=== PATIENT | female | born 1965 | race Caucasian/White ===

== ENCOUNTER 2020-05-05 23:30 | Inpatient (IN) | payer MEDICARE, OTHER ==
[~2020-05-05] VITALS: Ht 165.1 cm; Wt 63.5 kg
[2020-05-06] MEDS ORDERED: MAG HYDROX/AL HYDROX/SIMETH 30 ML UDC PO PRN (00:30)
[2020-05-06] MEDS ORDERED: BLOOD SUGAR DIAGNOSTIC 1 EACH STRIP IN ONE (00:30)
[2020-05-06] MEDS ORDERED: MAGNESIUM HYDROXIDE 30 ML UDC PO PRN (00:30)
[2020-05-06 00:52] VITALS: BP 148/76
[2020-05-06] MEDS ORDERED: ASPI-1169 PO (01:03)
[2020-05-06] MEDS ORDERED: FAMO-131 PO (01:03)
[2020-05-06] MEDS ORDERED: SENN-18 PO (01:03)
[2020-05-06] MEDS ORDERED: ENOX40DI SQ (01:03)
[2020-05-06] MEDS ORDERED: LEVE250T2 PO (01:03)
--- NOTE | 2020-05-06 01:23 | NUR ---
GPS RN ADMITTING NOTE PT ADMITTED TO THE UNIT 05/05/2020 @ 0050, PT ARRIVED VIA AMBULANCE/GURNEY TRANSPORTED FROM [facility]. PT IS A 54 Y/O FEMALE CURRENTLY ON A 5150 FOR DTS PER REPORT PT TRIED TO OVERDOSE ON PRESCRIPTION MEDICATION. PT HAS HISTORY OF HYPERTENSION, HIV + AND SEIZURES. PT HAS NO HISTORY OF ALCOHOL OR DRUG ABUSE OR PREVIOUS SI/HI. PT IS A/O X 3, FLAT AFFECT, DEPRESSED, ANXIOUS, ISOLATIVE MOOD. PT IS CALM, COOPERATIVE, COMPLIANT WITH STAFF BUT REFUSED TO SIGN PAPERWORK. UPON ADMISSION, SKIN CHECK WAS DONE, PICTURES WERE TAKEN AND PLACED IN CHART FOR SLIGHT ABRASIONS AND WOUND CONSULT ORDERED. PT VITAL SIGNS ARE STABLE, B/P: 148/76, T:99.6, R.R.: 18, HR: 73, O2: 99 RA. WHEN ASKED PT UNDERSTANDING FOR HOSPITALIZATION THE PT STATED "I TRIED TO TAKE MY LIFE AWAY, I AM GOING THROUGH A DIVORCE AND I DO NOT WANT TO BE ". WHEN ASKED IF PT HAS THOUGHTS OF SELF HARM OR HARMING OTHER PT DENIES, PT ALSO DENIES AVH. NO CONTRABANDS WERE WITH PT, PT ORIENTED TO UNIT, PT ADVISE OF HOLD AND PTS RIGHTS BOOKLET GIVEN. DR. ARANDA AND MEDICAL CARE OF DR. BLUM WILL BE APART OF PTS PLAN OF CARE. NO FAMILY TO NOTIFY. ALL PTS QUESTIONS AND CONCERNED WERE ANSWERED. ENVIRONMENTAL CHECK DONE PTS BED IS IN LOCKED AND LOWEST POSITION, BED ALARM IS ON, PT IS NOTIFIED ON HOW TO USE CALL LIGHT, WILL CONTINUE TO MONITOR Q15 MIN FOR SAFETY AND BEHAVIOR. Addendum: 05/06/20 at 0330 by CLYDE CEDENO RN PER RECORD PT IS A RECOVERING ALCOHOLIC, WHEN ASKED PT ABOUT HISTORY OF ALCOHOL AND DRUG ABUSE PT DENIES ANY HISTORY OF ALCOHOL AND DRUG ABUSE.
[2020-05-06] MEDS: ACETAMINOPHEN 325 MG TABLET PO PRN ×2 (03:15→17:36)
--- NOTE | 2020-05-06 06:49 | NUR ---
GPS RN NOTE: FAMILY NOTIFICATION RECEIVED A CALL FROM DAUGHTERMELQUIADES AT @0630, NOTIFIED PT ADMISSION AND PT MADE AWARE STATED "I WILL CALL HER BACK LATER".
[2020-05-06 08:00] VITALS: BP 113/75
[2020-05-06] MEDS ORDERED: SENNOSIDES 8.6 MG TABLET PO PRN (08:30)
[2020-05-06] MEDS: ASPIRIN 81 MG TAB.CHEW PO SCH (08:42)
[2020-05-06] MEDS: FAMOTIDINE (20 MG) 20 MG TABLET PO SCH (08:42)
[2020-05-06] MEDS: LEVETIRACETAM (250 MG) 250 MG TABLET PO SCH ×2 (08:43→21:59)
[2020-05-06] MEDS ORDERED: ENOXAPARIN SODIUM 40 MG/0.4 ML DISP.SYRIN SQ SCH (09:00)
--- NOTE | 2020-05-06 11:01 | NUR ---
Family Contact: JHONNY spoke with patient's daughter, Jemima Hair ([phone]) regarding treatment and initial discharge plan. Jemima stated that patient will return home upon discharge. Jemima provided collateral information regarding the patient, and stated that this is the patient's first suicide attempt, however patient suffers from depression for many years. Jemima stated that the patient receives primary physician and psychiatry services from the [place] in [address] [address] ([phone]).
--- NOTE | 2020-05-06 11:01 | NUR ---
JHONNY Initial Discharge Plan: Patient currently resides at home [address] , [place] [address] lives with daughter, Jemima Hair ([phone]). JHONNY spoke with Jemima who confirmed that patient will return home upon discharge. Patient would like to return back home upon discharge. JHONNY will continue to work with patient, family, and MD to ensure a safe and proper discharge plan.
--- NOTE | 2020-05-06 11:45 | NUR ---
Brief Substance Abuse Intervention: Patient was provided with a brief substance abuse intervention and referred to the following substance abuse programs: [facility] Substance Abuse Self-helpline ([phone]); [facility] [address] [place] [address] ([phone]); [facility] [address] [facility] [address] ([phone]); [facility] ([phone]); [facility] ([phone]); [facility] ([phone]); [facility] ([phone]).
--- NOTE | 2020-05-06 15:48 | NUR ---
Group Note: SW encouraged pt to attend group therapy on 05/06/20 on the topic of discharge planning. Pt appeared to be asleep and stated that he did not want to participate.
[2020-05-06 16:00] VITALS: BP 129/72
[2020-05-06] MEDS: clonazePAM 0.5 MG TABLET PO PRN (17:51)
--- NOTE | 2020-05-06 17:52 | NUR ---
RN NOTE: PAIN/ANXIETY PT C/O 12/10 HEADACHE. MEDICATED WITH TYLENOL 650MG PO PRN. PT ALSO TEARFUL AND ANXIOUS. MEDICATED WITH KLONOPIN 0.5 MG PO PRN
--- NOTE | 2020-05-06 19:00 | NUR ---
GPS RN NOTES OPENING: RECEIVED PT IN BED AWAKE RESTING COMFORTABLY. PT IS A/O X3-4, ISOLATIVE, QUIET, RESERVE, GUARDED, NO DIRECT EYE CONTACT W/ STAFF, SEEMS DEPRESSED, AND FLAT AFFECT. NO RESP DISTRESS NOTED. BREATHING EVEN AND UNLABORED. NO PAIN AT THIS TIME. ENCOURAGE PT TO EXPRESS THOUGHTS AND FEELINGS. CALL ELIAS WITHIN REACH. SAFETY CHECK Q15 MIN. NO SI OR HI AT THIS TIME. CONTINUE TO MONITOR.
--- NOTE | 2020-05-06 19:55 | NUR ---
GPS RN NOTES: C/O OF CHEST PAIN RECEIVED CALL FROM PTS DAUGHTER MELQUIADES STATING THAT HER MOM IS CURRENTLY HAVING CHEST PAIN. WENT TO PTS ROOM AND FOUND PT LAYING IN BED AWAKE AND TALKING TO HER DAUGHTER ON THE PHONE. ASSESSED PT AND CONFIRMED W/ STAFF SHE IS HAVING CHEST PAIN. PT RATED PAIN TO BE 9/10 LOCATED TOWARDS HER MID CHEST. PT STATED PAIN DOES NOT RADIATE ANYWHERE ELSE IN HER BODY AND THAT THE PAIN INCREASES WHEN SHE IS MOVING OUT OF HER BED OR GETTING UP. VITALS TAKEN WNL. BP 110/ 78, 99% OXYGEN SAT ON ROOM AIR, 18 RESP, AND 77 HEART RATE. NO RESP DISTRESS. NO SOB. BREATHING EVEN AND UNLABORED. ASKED PT IF SHE HAS HAD THIS PAIN BEFORE AND PT STATED SHE HAS NOT. PT SPOKE ON THE PHONE W/ HER DAUGHTER AND CONFIRMED W/ DAUGHTER SHE HAS HAD THIS PAIN BEFORE IN THE PAST. SPOKE W/ THE DAUGHTER ON THE PHONE AND STATED HER MOTHER HAD THE CHEST PAIN ABOUT 2 WEEKS AGO AND COMES "OFF AND ON AT TIMES". PAGED THE VICE PRESIDENT INTEGRATED CLOCKMAKER APPRENTICE CARROL BURK REGARDING THE PATIENTS CHANGE OF CONDITION. WILL F/U FOR ANY NEW ORDERS. ELEVATED THE HEAD OF THE BED. SAFETY CHECK Q15 MIN. BY BED SIDE OF PT. CONTINUE TO MONITOR.
[2020-05-06 19:58] VITALS: BP 110/78
[2020-05-06 20:05] VITALS: BP 108/69
--- NOTE | 2020-05-06 20:41 | NUR ---
GPS RN NOTES: UROLOGY PHYSICIAN ASSISTANT CALL BACK THE LINE APPLIANCE ASSEMBLER UROLOGY PHYSICIAN ASSISTANT CARROL BURK CALLED BACK AND NOTIFIED REGARDING PT CURRENT CONDITION WITH NEW ORDERS OF HYDROCODONE 5-325MG PO PRN Q6RS FOR SEVERE PAIN AND MOTRIN 400 MG PO PRN Q6RS FOR MILD PAIN. ORDERS NOTED AND CARRIED OUT. ADMINISTERED NORCO 5-325MG PO PRN ORDERED FOR CHEST PAIN. PT AGREED AND TOLERATED MEDICATION WELL. CONTINUE TO MONITOR.
[2020-05-06] MEDS: HYDROCODONE/APAP 5/325MG 1 EACH TABLET PO PRN (20:51)
[2020-05-06] MEDS ORDERED: IBUPROFEN 400 MG TABLET PO PRN (21:00)
--- NOTE | 2020-05-06 21:00 | NUR ---
GPS RN NOTES: ELECTRICIAN FRONT ASSESSED PT ELECTRICIAN FRONT CARROL BURK CAME TO THE UNIT AND ASSESSED PT. ELECTRICIAN FRONT AT BEDSIDE WITH NO OF CBC, CMP, TROPONIN LEVEL, AND EKG STAT. ORDERERS NOTED AND CARRIED OUT. CONTINUE TO MONITOR
[2020-05-06 21:40] VITALS: BP 124/70
--- NOTE | 2020-05-06 21:40 | NUR ---
GPS RN NOTES: UPON DOING ROUNDS, PT AWAKE IN BED. PT STATED, "MY PAIN IS GETTING A LITTLE BETTER. " RECHECKED VITALS WNL. BP 124/ 70, PULSE 76, OXYGEN LEVEL 97%, RESP 18. NO RESP DISTRESS NOTED. BREATHING EVEN AND UNLABORED. CONTINUE TO MONITOR.
[2020-05-06 21:48] LABS: BASOPHILS % (AUTO) 0.6 % (0.0-2.0); EOSINOPHILS % (AUTO) 2.9 % (0.0-6.0); HEMATOCRIT 39 % (33-45); HEMOGLOBIN 12.7 g/dL (11.5-14.8); LYMPHOCYTES # (AUTO) 1.7 /CMM (0.8-4.8); LYMPHOCYTES % (AUTO) 27.5 % (20.0-44.0); MEAN CORPUSCULAR HGB CONC 33 g/dl (31.0-36.0); MEAN CORPUSCULAR VOLUME 97 fL (82-100); MONOCYTES # (AUTO) 0.7 /CMM (0.1-1.30); MONOCYTES % (AUTO) 11.8 % (2.0-12.0); NEUTROPHILS # (AUTO) 3.5 /CMM (1.8-8.9); NEUTROPHILS % (AUTO) 57.2 % (43.0-81.0); PLATELET COUNT (AUTO) 288 /CMM (150-450); RED BLOOD CELL COUNT(AUTO) 4.01 MIL/uL (4.0-5.2); WHITE BLOOD COUNT (AUTO) 6.1 K/uL (4.3-11.0)
--- NOTE | 2020-05-06 22:09 | NUR ---
GPS RN NOTES: LAB RESULTS SHOWN TROPONIN LEVEL <0.017, NA LEVEL 134, POTASSIUM 4.1, WBC 6.1, RBC 4.01, HGB 12.7, HCT 39. RELAYED PT SODIUM LEVEL 134 TO RESEARCH CHEF WM. NO NEW ORDERS AT THIS TIME. NO RESP DISTRESS. BREATHING EVEN AND UNLABORED. PT RESTING IN BED AWAKE. OFFERED SNACKS REQUESTED BY PT. TOLERATED WELL. CONTINUE TO MONITOR.
[2020-05-06] MEDS: ESCITALOPRAM OXALATE (10 MG) 10 MG TABLET PO SCH (22:37)
[2020-05-06 22:56] LABS: ALANINE AMINOTRANSFERASE 38 U/L (12-78); ALBUMIN 2.6 g/dL (3.4-5.0); ALKALINE PHOSPHATASE 74 U/L (46-116); ASPARTATE AMINOTRANSFERASE 22 U/L (15-37); BILIRUBIN,TOTAL 0.4 mg/dL (0.2-1.0); CALCIUM, SERUM 8.7 mg/dL (8.5-10.1); CARBON DIOXIDE 30 mmol/L (21-32); CHLORIDE 101 mmol/L (98-107); CREATININE 0.7 mg/dL (0.6-1.3); GLUCOSE 117 mg/dL (74-106); POTASSIUM 4.1 mmol/L (3.5-5.1); SODIUM SERUM 134 mmol/L (136-145); UREA NITROGEN, BLOOD 14 mg/dL (7-18)
--- NOTE | 2020-05-06 23:00 | NUR ---
GPS RN NOTES: DAUGHTER MELQUIADES CALLED TO CHECK ON PT. MADE AWARE OF PTS CURRENT STATE. PT IS CURRENTLY SLEEPING IN BED RESTING COMFORTABLE W/ EYES CLOSED. BREATHING EVEN AND UNLABORED. NO SOB. AT THIS TIME. NO RESP DISTRESS. CALL ELIAS WITHIN REACH. SAFETY CHECK Q15 MIN. KEPT CLEAN AND DRY. CONTINUE TO MONITOR.
[2020-05-07] VITALS (7 sets, daily range): BP systolic 109–126; BP diastolic 69–93
--- NOTE | 2020-05-07 00:09 | NUR ---
GPS RYAN NOTES: LABORATORY CAME AND NAT BLOOD. ANIMAL CAREGIVER CAME. EKG RESULTS SHOW SINUS RHYTHM NONSPECIFIC T ABNORMALITIES RATE IS 76. ERICA BURK AWARE ABOUT EKG RESULTS. CONTINUE TO MONITOR. Addendum: 05/07/20 at 0016 by ABDIRIZAK MARVIN RN EKG RESULTS RELAYED TO WM AT 05/06/20 @9938
[2020-05-07] MEDS: TEMAZEPAM 15 MG CAPSULE PO PRN (01:23)
--- NOTE | 2020-05-07 01:25 | NUR ---
GPS RN NOTES: INSOMNIA PT C/O UNABLE TO SLEEP. PT REQUESTED SLEEPING MEDICATION. VITALS CHECKED WNL. B/P 115/76, HR 80, O2 98, RESP 20. NO SOB. BREATHING EVEN AND UNLABORED. ASKED PT IF SHE IS CURRENTLY IN ANY PAIN PT SHOOK HER HEAD. OFFERED RESTORIL 15MG PO PRN ORDERED. PT AGREED AND TOLERATED MEDICATION WELL. CONTINUE TO MONITOR.
[2020-05-07 08:02] LABS: CHOLESTEROL 204 mg/dL (<200); HDL CHOLESTEROL 45 mg/dL (40-60); LDL 133 mg/dL (0-99); TRIGLYCERIDES 96 mg/dL (30-150)
[2020-05-07 08:17] LABS: ALBUMIN 2.6 g/dL (3.4-5.0); BILIRUBIN,TOTAL 0.4 mg/dL (0.2-1.0); CALCIUM, SERUM 8.6 mg/dL (8.5-10.1); CREATININE 0.6 mg/dL (0.6-1.3); POTASSIUM 4.2 mmol/L (3.5-5.1)
[2020-05-07] MEDS: ESCITALOPRAM OXALATE (10 MG) 10 MG TABLET PO SCH (09:13)
[2020-05-07] MEDS: ASPIRIN 81 MG TAB.CHEW PO SCH (09:13)
[2020-05-07] MEDS: LEVETIRACETAM (250 MG) 250 MG TABLET PO SCH ×2 (09:13→21:56)
[2020-05-07] MEDS: FAMOTIDINE (20 MG) 20 MG TABLET PO SCH (09:15)
--- NOTE | 2020-05-07 11:23 | NUR ---
Group Note: SW encouraged pt to participate in group on the topic of dealing with anxiety. Patient stated that she is feeling a little anxiety. Patient presents increasingly depressed and withdrawn. SW encouraged patient to share her feelings and emotions, however patient is guarded and does not want to over share.
[2020-05-07] MEDS: clonazePAM 0.5 MG TABLET PO PRN (19:41)
--- NOTE | 2020-05-07 19:43 | NUR ---
GPS RN NOTES: ANXIOUS PT C/O OF FEELING ANXIOUS. VITALS STABLE WNL. NO SOB. NO RESP DISTRESS. BREATHING EVEN AND UNLABORED. NO PAIN NOTED PT REQUESTED "ANXIETY MEDICATION". OFFERED KLONOPIN PRN PO ORDERED. PT AGREED AND TOLERATED MEDICATION WELL. CONTINUE TO MONITOR
[2020-05-07] MEDS: HYDROCODONE/APAP 5/325MG 1 EACH TABLET PO PRN (21:12)
--- NOTE | 2020-05-07 21:13 | NUR ---
GPS RN NOTES: PAIN PT C/O OF 04/11 MID CHEST PAIN. VITALS CHECK WNL. NO SOB. NO RESP DISTRESS. BREATHING EVEN AND UNLABORED. OFFERED NORCO PRN PO ORDERED. PT AGREED AND TOLERATED MEDICATION WELL. CONTINUE TO MONITOR.
[2020-05-07] MEDS: QUETIAPINE FUMARATE 25 MG TABLET PO SCH (22:56)
[2020-05-08 08:00] VITALS: BP 121/59
[2020-05-08] MEDS: ESCITALOPRAM OXALATE (10 MG) 10 MG TABLET PO SCH (09:00)
[2020-05-08] MEDS: ASPIRIN 81 MG TAB.CHEW PO SCH (09:00)
[2020-05-08] MEDS: FAMOTIDINE (20 MG) 20 MG TABLET PO SCH (09:00)
[2020-05-08] MEDS: LEVETIRACETAM (250 MG) 250 MG TABLET PO SCH ×2 (09:00→21:09)
[2020-05-08] MEDS: clonazePAM 0.5 MG TABLET PO PRN (12:47)
--- NOTE | 2020-05-08 12:47 | NUR ---
rn notes administered Klonopin 0.5 mg po prn for anxiety per patient request, also complication of pain upper chest. v/s taken bp145/82, p-93, safety precaution maintained all the time.
[2020-05-08 12:56] VITALS: BP 114/75
[2020-05-08] MEDS: ACETAMINOPHEN 325 MG TABLET PO PRN (13:00)
--- NOTE | 2020-05-08 13:00 | NUR ---
RN NOTES ADMINISTERED TYLENOL 650 MG PO PRN FOR UPPER CHEST PAIN 12/10 PER PATIENT REQUEST, CONTINUED MONITORING.
--- NOTE | 2020-05-08 13:18 | NUR ---
RN-CO: PATIENT WAS SEEN BY DR ARANDA VIA TELEMEDICINE.
--- NOTE | 2020-05-08 15:12 | NUR ---
FAMILY CONTACT: SW spoke with patient's daughter, Jemima Hair ([phone]) regarding treatment and initial discharge plan. Daughter informed SW that pt has been complaining about chest pain, daughter stated that before pt was hospitalized daughter performed CPR and believes that pt may have a fractured bone. Daughter is requesting pt have a chest X-ray done. SW stated that she will inform RN. Daughter also stated that she will try to contact the [facility] to schedule follow up appointments for pt.
[2020-05-08 16:00] VITALS: BP 126/92
[2020-05-08 19:50] LABS: APPEARANCE,URINE CLEAR (CLEAR); BILIRUBIN,URINE NEGATIVE (NEGATIVE); BLOOD, URINE LARGE Ery/uL (NEGATIVE); COLOR,URINE YELLOW (YELLOW); KETONES,URINE TRACE (NEGATIVE); LEUKOCYTE ESTERASE ,URINE LARGE (NEGATIVE); NITRITE, URINE NEGATIVE (NEGATIVE); PROTEIN,URINE NEGATIVE (NEGATIVE); UGLUCOSE NEGATIVE (NEGATIVE); UROBILINOGEN,URINE 0.2 EU/dL (0.2)
[2020-05-08 20:06] VITALS: BP 109/52
[2020-05-08 20:29] LABS: BACTERIA,URINE 3+ /HPF (None Seen); RBC,URINE 21-50 /HPF (0-2); SQUAMOUS EPITHELIAL CELL,UR 0-2 /HPF (None Seen); WBC,URINE 81-100 /HPF (0-3)
[2020-05-08] MEDS: HYDROCODONE/APAP 5/325MG 1 EACH TABLET PO PRN (21:09)
--- NOTE | 2020-05-08 21:17 | NUR ---
GPS RN NOTE: PAIN PT STATED SHE WAS HAVING "9/10 CHEST AND BODY PAIN, IT IS GOING THROUGHOUT MY BODY". CHECKED PT VITAL SIGNS, BP: 126/82, HR: 73, RR: 18, O2: 98 RA. PT STATED "CAN I TAKE MY NORCO RIGHT NOW", ADMINISTERED NORCO PRN @ 2102. WILL REASSESS AND CONTINUE TO MONITOR Q15MIN FOR SAFETY AND BEHAVIOR.
--- NOTE | 2020-05-08 21:42 | NUR ---
GPS RN NOTE, PATIENT UA RESULTS ARE THE FOLLOWING URINE WBC 81 -100 AND URINE BACTERIA IS 3 + HIGH. PATIENT URINE CULTURE IS PENDING. PATIENT IS AFEBRILE, HAS NO COMPLAINT OF DYSURIA, OR DIFFICULTY URINATING AT THIS TIME. PAGED [facility] AND INFORMED CARROL BURK DNP OF MY FINDINGS. CARROL BURK DNP ORDERED LEVOFLOXACIN 250MG PO DAILY BRIANNA X 5 DAYS FOR A URINARY TRACT INFECTION. ALL ORDERS NOTED AND CARRIED OUT. WILL CONTINUE TO MONITOR THIS PATIENT WITH THE HELP OF STAFF
[2020-05-08] MEDS: QUETIAPINE FUMARATE 25 MG TABLET PO SCH (21:59)
--- NOTE | 2020-05-08 22:30 | NUR ---
GPS RN NOTE, PATIENT 5150 HOLD IS GOING TO ON 05/08/20 @ [address]. PAG[address] ARANDA AND INFORMED HIM OF MY FINDING. DR ARANDA ORDERED TO HAVE THIS PATIENT SIGN VOLUNTARY. ALL ORDERS NOTED AND CARRIED OUT. WILL CONTINUE TO MONITOR THIS PATIENT WITH THE HELP OF STAFF.
[2020-05-08] MEDS: TEMAZEPAM 15 MG CAPSULE PO PRN (22:48)
--- NOTE | 2020-05-08 22:52 | NUR ---
GPS RN NOTE: INSOMNIA PT STATED "CAN I HAVE A RESTORIL RIGHT NOW I CAN'T SLEEP". WENT AHEAD CHECK PATIENTS VITALS, VITAL SIGNS STABLE BP: 117/77, HR:75, RR: 17, 02: 99 RA. ADMINISTERED RESTORIL PRN @2240. ENVIORNMENTAL CHECK DONE, PT BED IS IN LOCKED AND LOWEST POSITION. BED ALARM IS ON. WILL REASSESS AND CONTINUE TO MONITOR Q15 MIN FOR SAFETY AND BEHAVIOR.
[2020-05-09] MEDS: ASPIRIN 81 MG TAB.CHEW PO SCH (08:21)
[2020-05-09] MEDS: FAMOTIDINE (20 MG) 20 MG TABLET PO SCH (08:21)
[2020-05-09] MEDS: LEVETIRACETAM (250 MG) 250 MG TABLET PO SCH ×2 (08:21→21:49)
[2020-05-09] MEDS: ESCITALOPRAM OXALATE (10 MG) 10 MG TABLET PO SCH (08:21)
[2020-05-09] MEDS: LEVOFLOXACIN (250MG) 250 MG TABLET PO SCH (08:23)
[2020-05-09 08:30] VITALS: BP 131/80
[2020-05-09 16:00] VITALS: BP 140/89
[2020-05-09 19:35] VITALS: BP 121/73
[2020-05-09] MEDS: HYDROCODONE/APAP 5/325MG 1 EACH TABLET PO PRN (20:05)
--- NOTE | 2020-05-09 20:05 | NUR ---
GPS RN NOTE: PAIN PT. C/O OF 06/12 LOWER BACK PAIN. ADMINISTERED NORCO PO PRN ORDERED. WILL CONTINUE TO MONITOR FOR SAFETY AND BEHAVIOR.
[2020-05-09] MEDS: QUETIAPINE FUMARATE 25 MG TABLET PO SCH (21:48)
[2020-05-09] MEDS: TEMAZEPAM 15 MG CAPSULE PO PRN (22:41)
--- NOTE | 2020-05-09 22:41 | NUR ---
GPS RN NOTE: INSOMNIA PT. C/O OF UNABLE TO SLEEP. ADMINISTERED RESTORIL PO PRN ORDERED. WILL CONTINUE TO MONITOR FOR SAFETY AND BEHAVIOR.
[2020-05-10 08:00] VITALS: BP 125/66
[2020-05-10] MEDS: ESCITALOPRAM OXALATE (10 MG) 10 MG TABLET PO SCH ×2 (08:35→12:13)
[2020-05-10] MEDS: ASPIRIN 81 MG TAB.CHEW PO SCH (08:35)
[2020-05-10] MEDS: FAMOTIDINE (20 MG) 20 MG TABLET PO SCH (08:35)
[2020-05-10] MEDS: LEVOFLOXACIN (250MG) 250 MG TABLET PO SCH (08:35)
[2020-05-10] MEDS: LEVETIRACETAM (250 MG) 250 MG TABLET PO SCH ×2 (08:35→21:25)
[2020-05-10 16:00] VITALS: BP 104/62
[2020-05-10 20:20] VITALS: BP 100/64
[2020-05-10] MEDS: HYDROCODONE/APAP 5/325MG 1 EACH TABLET PO PRN (20:50)
--- NOTE | 2020-05-10 20:50 | NUR ---
GPS RN NOTE: PAIN PT. C/O OF 06/12 LOWER BACK PAIN. ADMINISTERED NORCO PO PRN ORDERED. WILL CONTINUE TO MONITOR FOR SAFETY AND BEHAVIOR.
[2020-05-10] MEDS: QUETIAPINE FUMARATE 25 MG TABLET PO SCH (21:25)
[2020-05-10] MEDS: TEMAZEPAM 15 MG CAPSULE PO PRN (22:49)
--- NOTE | 2020-05-10 22:49 | NUR ---
GPS RN NOTE: INSOMNIA PT. C/O OF UNABLE TO SLEEP. ADMINISTERED RESTORIL PO PRN ORDERED. WILL CONTINUE TO MONITOR FOR SAFETY AND BEHAVIOR.
[2020-05-11 08:00] VITALS: BP 107/63
[2020-05-11] MEDS: ESCITALOPRAM OXALATE (10 MG) 10 MG TABLET PO SCH ×2 (08:23→12:20)
[2020-05-11] MEDS: LEVOFLOXACIN (250MG) 250 MG TABLET PO SCH (08:24)
[2020-05-11] MEDS: FAMOTIDINE (20 MG) 20 MG TABLET PO SCH (08:24)
[2020-05-11] MEDS: LEVETIRACETAM (250 MG) 250 MG TABLET PO SCH ×2 (08:24→21:25)
[2020-05-11] MEDS: ASPIRIN 81 MG TAB.CHEW PO SCH (08:24)
--- NOTE | 2020-05-11 09:00 | NUR ---
RN NOTE- PT IN BED, ALERT ORIENTED PERSON PLACE TIME PURPOSE PO INTAKE GOOD MED COMPLIANT DENIES SI HI AH VH WITHDRAWN FLAT AFFECT GUARDED
[2020-05-11 15:49] VITALS: BP 130/93
[2020-05-11 20:00] VITALS: BP 100/57
[2020-05-11] MEDS: HYDROCODONE/APAP 5/325MG 1 EACH TABLET PO PRN (20:39)
--- NOTE | 2020-05-11 20:55 | NUR ---
GPS RN NOTE: PAIN PT STATED A PAIN 06/12 STATED "CAN I HAVE MY NORCO " PTS VITALS 135/76, HR: 91, RR: 20, O2: 97 RA, ADMINISTERED NORCO @ 2038, WILL REASSESS AND CONTINUE TO MONITOR Q15 MIN FOR SAFETY AND BEHAVIOR
[2020-05-11] MEDS: QUETIAPINE FUMARATE 25 MG TABLET PO SCH (21:25)
[2020-05-11] MEDS: TEMAZEPAM 15 MG CAPSULE PO PRN (23:48)
--- NOTE | 2020-05-11 23:55 | NUR ---
GPS RN NOTE: INSOMNIA PT STATED "I CAN'T FALL ASLEEP, CAN I PLEASE HAVE MY RESTORIL". ADMINISTERED PRN RESTORIL AT 2358, WILL REASSESS AND CONTINUE TO MONITOR Q15 MIN FOR SAFETY AND BEHAVIOR
[2020-05-12 08:00] VITALS: BP 95/62
[2020-05-12] MEDS: ASPIRIN 81 MG TAB.CHEW PO SCH (08:39)
[2020-05-12] MEDS: FAMOTIDINE (20 MG) 20 MG TABLET PO SCH (08:39)
[2020-05-12] MEDS: LEVETIRACETAM (250 MG) 250 MG TABLET PO SCH ×2 (08:39→20:04)
[2020-05-12] MEDS: LEVOFLOXACIN (250MG) 250 MG TABLET PO SCH (08:39)
[2020-05-12] MEDS: ESCITALOPRAM OXALATE (10 MG) 10 MG TABLET PO SCH ×2 (08:39→12:13)
--- NOTE | 2020-05-12 09:00 | NUR ---
RN NOTE- PT OOB INTERACTIVE PO INTAKE GOOD DENIES SI HI AH VH. MED COMPLIANT
--- NOTE | 2020-05-12 10:42 | NUR ---
WOUND CARE CONSULT: PT PRESENTS WITH REDNESS/RASH TO BREASTFOLDS, PRESENT ON ADMISSION. RECOMMENDATIONS MADE FOR SKIN CARE AND PROTECTION. DISCUSSED WITH NURSING STAFF. PT IS AMBULATORY AND CONTINENT. Addendum: 05/12/20 at 1043 by DAVID THOMPSON WNDNU Amended: Links added.
[2020-05-12 16:00] VITALS: BP 113/74
[2020-05-12] MEDS: CLOTRIMAZOLE 1% 15 GM TUBE TP SCH (17:26)
[2020-05-12 19:33] VITALS: BP 126/78
[2020-05-12] MEDS: HYDROCODONE/APAP 5/325MG 1 EACH TABLET PO PRN (20:10)
--- NOTE | 2020-05-12 20:10 | NUR ---
GPS-RN NOTE: LOWER BACK PAIN PATIENT C/O LOWER BACK PAIN ON A PAIN SCALE OF 7/10. ADMINISTERED NORCO 5/325MG PO ORDERED PER PT'S REQUEST. WILL REASSESS PT.
[2020-05-12] MEDS: QUETIAPINE FUMARATE 25 MG TABLET PO SCH (21:05)
[2020-05-12] MEDS: TEMAZEPAM 15 MG CAPSULE PO PRN (22:10)
--- NOTE | 2020-05-12 22:10 | NUR ---
GPS-RN NOTE: INSOMNIA PATIENT C/O INABILITY TO SLEEP. ADMINISTERED RESTORIL 15MG PO ORDERED PER PT'S REQUEST. WILL CONTINUE TO MONITOR.
[2020-05-13 08:00] VITALS: BP 121/70
[2020-05-13] MEDS: ASPIRIN 81 MG TAB.CHEW PO SCH (08:29)
[2020-05-13] MEDS: ESCITALOPRAM OXALATE (10 MG) 10 MG TABLET PO SCH ×2 (08:29→12:25)
[2020-05-13] MEDS: LEVETIRACETAM (250 MG) 250 MG TABLET PO SCH ×2 (08:29→21:35)
[2020-05-13] MEDS: CLOTRIMAZOLE 1% 15 GM TUBE TP SCH ×2 (08:29→17:18)
[2020-05-13] MEDS: LEVOFLOXACIN (250MG) 250 MG TABLET PO SCH (08:29)
[2020-05-13] MEDS: FAMOTIDINE (20 MG) 20 MG TABLET PO SCH (08:29)
--- NOTE | 2020-05-13 08:31 | NUR ---
FAMILY CONTACT: JHONNY spoke with patient's daughter, Jemima Hair ([phone]) regarding pts discharge tomorrow Tuesday05/14/20. Daughter stated that pt is not ready to return home and she needs to be placed "somewhere." SW explained that pt is on voluntary admission and cannot be forced to be placed at a SNF or any other home. Daughter stated that pt is still expressing suicidal thoughts and last week called her brothers to tell them that she was upset that she did not succeed. SW explained that as of the past 2 days pt has been denying imminent suicidal ideation. Daughter demanded SW call the MD while she was on the phone. SW explained that she was not able to do that as MD works remotely and works at various hospitals, SW stated that she will contact MD via text message and inform him that she wishes to discuss pts treatment and suicidal ideation. Daughter became volatile and threatened SW stating that if pt is discharged and commits suicide it will be the SW's fault for not doing anything about it. SW attempted to calm daughter down and daughter became more verbally aggressive and stated that if SW ended the call she will call over and over until she got what she wanted. SW ended the call and informed Weather Strip Installer and MD.
--- NOTE | 2020-05-13 09:47 | NUR ---
INDIVIDUAL INTERVENTION: SW spoke with pt regarding incident with daughter. SW informed her that daughter stated that pt is continuing to report suicidal ideation and also told MD that she was a psychiatrist and that pts sister was a psychologist. Sister denied suicidal ideation stating that she has not been having thoughts of suicide and also stated that her daughter is 23 years old studying to become a chef head. SW informed her that daughter informed MD that she did not want pt returning home. Pt stated that she and daughter are on the lease together and that legally daughter could not refuse to take her back into her own home. Pt stated that she wishes to be discharged tomorrow back home and states she is no longer having thoughts of suicide. SW stated that she will provide update to MD.
--- NOTE | 2020-05-13 10:44 | NUR ---
COORDINATION OF CARE: SW contacted the [facility] Address: [address] , [place] [address] to schedule a follow up appointment with Psychiatrist Dr. Fay on 05/28/20 at 1030am and follow up appointment with Beauty Culture Teacher Dr. Julia Morales on 05/28/20 at 930am.
[2020-05-13 16:00] VITALS: BP 108/68
[2020-05-13 19:57] VITALS: BP 134/72
[2020-05-13] MEDS: HYDROCODONE/APAP 5/325MG 1 EACH TABLET PO PRN (20:34)
[2020-05-13] MEDS ORDERED: QUETIAPINE FUMARATE 25 MG TABLET PO SCH (22:00)
[2020-05-13] MEDS: TEMAZEPAM 15 MG CAPSULE PO PRN (22:06)
--- NOTE | 2020-05-13 22:06 | NUR ---
GPS RN NOTE: INSOMNIA PT. UNABLE TO SLEEP. ADMINISTERED RESTORIL 15 MG PO PRN ORDERED. WILL CONTINUE TO MONITOR FOR SAFETY AND BEHAVIOR
[2020-05-14 08:00] VITALS: BP 118/65
[2020-05-14] MEDS: FAMOTIDINE (20 MG) 20 MG TABLET PO SCH (08:40)
[2020-05-14] MEDS: LEVETIRACETAM (250 MG) 250 MG TABLET PO SCH (08:40)
[2020-05-14] MEDS: ASPIRIN 81 MG TAB.CHEW PO SCH (08:41)
[2020-05-14] MEDS: CLOTRIMAZOLE 1% 15 GM TUBE TP SCH ×2 (08:46→16:09)
[2020-05-14] MEDS ORDERED: ESCITALOPRAM OXALATE (10 MG) 10 MG TABLET PO SCH (09:00)
--- NOTE | 2020-05-14 10:24 | NUR ---
DISCHARGE NOTE: Pt will be discharged via private vehicle between 12:00-2:00pm home [address] [place] [address]. Pts daughter, Jemima Hair ([phone]) will be picking pt up and transporting home. Pts mood is euthymic with congruent affect. Pt denied visual/auditory hallucinations and denied suicidal/homicidal ideation. Pt will follow up with Psychiatrist: Dr. Fay [facility] Address: [address] [place] [address] on 05/28/20 at 10:30am and a follow up appointment with Assistant County Attorney: Dr. Julia Morales [facility] Address: [address] [place] [address] on 05/28/20 at 9:30am. Pt was provided with referrals to address her alcohol use. Pt was referred to [facility]: [address] [place] [address] and will report for an Intake on 05/15/20 before 5:00pm. Additional resources included [facility] [address] [place] [address] and [facility] [address] [place] [address] . The multidisciplinary exit care form was done, printed, signed, and given to the patient.
[2020-05-14 16:00] VITALS: BP 123/71
--- NOTE | 2020-05-14 17:00 | NUR ---
GPS AUTOMOTIVE MECHANICAL ENGINEER NOTE : PATIENT DISCHARGED TODAY HOME PICKED UP BU DAUGHTER MELQUIADES PICKARD AT [address] [place] [address] PATIENT LEFT THE UNIT AMBULATORY ACCOMPANIED BY 1 STAFF TO THE MAIN LOBBY . PATIENT IS IN STABLE CONDITION. VSS. NO ACUTE DISTRESS NOTED. NO COMPLAINTS. COMPLIANT WITH MEDICATION MANAGEMENT. COOPERATIVE WITH PLAN OF CARE. PSYCHIATRIC TREATMENT PLANS MET. MEDICAL TREATMENT PLANS DEFERRED FOR CONTINUAL MONITORING. DENIES SI/HI/VAH AT THE TIME OF DISCHARGE, DENIES FEELING DEPRESSED . SKIN CHECK DONE HOWEVER PATIENT REFUSED PICTURES TO BE TAKEN. EDUCATED PATIENT ABOUT AFTERCARE WITH COPY PROVIDED. RETURNED PERSONAL BELONGINGS TO PATIENT. MEDICATIONS RECONCILED WITH ALONG WITH PSYCHIATRIC DISCHARGE ORDERS. DISCHARGE PAPERWORK SIGNED. FOR FOLLOW UP WITH PSYCHIATRIST AND OPTICIAN APPRENTICE WITHIN 1 WEEK.
== END 2020-05-14 17:06 | disposition home or self-care (01) | DRG 885 ==
LOC: GPS 23:30
PROVIDERS: ADMIT Psychiatry & Neurology Psychiatry; ATTEND Hospitalist
DX: F33.2 Major depressive disorder, recurrent severe without psychotic features (principal); B95.1 Streptococcus, group B, as the cause of diseases classified elsewhere; R45.851 Suicidal ideations; N39.0 Urinary tract infection, site not specified; F29 Unspecified psychosis not due to a substance or known physiological condition; F41.9 Anxiety disorder, unspecified; I10 Essential (primary) hypertension; Z91.5 Personal history of self-harm; F43.10 Post-traumatic stress disorder, unspecified; T50.992D Poisoning by other drugs, medicaments and biological substances, intentional self-harm, subsequent encounter; F10.21 Alcohol dependence, in remission
CPT/HCPCS: 36415; 80053-TC; 80061-TC; 81000-TC; 82962-TC; 84484-TC; 85025-TC; 87081-TC; 87086-TC